=== PATIENT | male | born 1935 | race Caucasian/White ===

== ENCOUNTER 2016-07-22 06:18 | Day surgery (SDC) | payer OTHER, BC ==
[2016-07-20 19:22] VITALS: BMI 31.3
[~2016-07-22 06:18] MED LIST: ceFAZolin SODIUM 1 GM VIAL IVPB ONE
[2016-07-22] MEDS ORDERED: PROPOFOL 20 ML ONE (08:13)
[2016-07-22] MEDS ORDERED: cefTRIAXone 1 GM/50 ML BAG (PRE-DOCKED) IVPB ONE (08:15)
[2016-07-22] MEDS ORDERED: cefTRIAXone SODIUM 1 GM VIAL IVPB ONE (08:19)
[2016-07-22] MEDS ORDERED: LIDOCAINE HCL/PF 2% SDV 5ML VIAL ONE (08:19)
[2016-07-22] MEDS ORDERED: oxyCODONE HCL 5 MG TABLET PO PRN (08:56)
[2016-07-22] MEDS ORDERED: ELECTROLYTE-148 SOLN 1,000 ML IV SCH (09:00)
--- NOTE | 2016-07-22 09:01 | OP ---
Operative Note - Note: Operative Date: 07/22/16 Pre-Operative Diagnosis: prostate stone, bladder neck obstruction Operation: cysto/laser litho/partial TURP Findings: stone adherent to prostatic urethra, bladder neck obstruction Post-Operative Diagnosis: Same as Pre-op Surgeon: Gabino Paul Anesthesia: General Specimens Removed: prostate stone/prostate chips Estimated Blood Loss (mls): 5 Operative Report Dictated: Yes
[2016-07-22] MEDS ORDERED: ONDANSETRON 4 MG/2 ML VIAL IVPUSH PRN (09:02)
[2016-07-22] MEDS ORDERED: PROMETHAZINE HCL 25 MG/1 ML VIAL IVPUSH PRN (09:02)
[2016-07-22] MEDS ORDERED: ACETAMINOPHEN 1000 MG/100 ML VIAL (NON FORMULARY) IVPB ONE (09:08)
[2016-07-22] MEDS ORDERED: LACTATED RINGERS SOLUTION 1,000 ML IV SCH (09:15)
[2016-07-22 12:05] VITALS: BP 144/65; PULSE 71
--- NOTE | 2016-07-22 20:35 | OP ---
DATE OF OPERATION: 07/22/2016 PREOPERATIVE DIAGNOSIS: Stone adherent to prostatic urethra and bladder neck obstruction. POSTOPERATIVE DIAGNOSIS: Stone adherent to prostatic urethra and bladder neck obstruction. PROCEDURE: Cystoscopy, laser lithotripsy of stone and partial transurethral resection of prostate. SURGEON: Darrell Metlon M.D. 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 He was taken to the OR for planned laser lithotripsy of stone and partial TURP. PROCEDURE: The patient was taken to the OR and placed supine on the OR table. After cardiac monitoring was begun and general anesthesia was established, he was prepped and draped dorsal lithotomy position. The 22 sheath cystoscope was inserted without difficulty. , status post TUR defect. There was a stone approximately 1.5 cm in size adherent to the prostatic urethra at the 2 o'clock position. Using the 1000 micron fiber, the stone was pulverized to fine dust in 2- to 3-mm fragments. These were all removed with the [employer] evacuator. At this point, the cystoscope was then removed and the prostatic urethra, underlying where the stone was, was partially resected to open up the bladder neck a little bit more. The prostate chips were then removed and sent to pathology for analysis. The bladder appeared normal. No tumors or stones were noted in the bladder. Bilateral were seen in normal anatomic position. There was no resection beyond the verumontanum to minimize incontinence. The resectoscope was then removed and a 20-Fijian Lakhani was then placed to straight drainage. Clear urine was retrieved. The patient was awakened from anesthesia and transferred to the recovery room in stable condition. There were no complications. ESTIMATED BLOOD LOSS: Minimal. DARRELL MELTON M.D. BRITNI/[id number]
[2016-07-26 09:22] VITALS: TEMP 97.8
--- NOTE | 2016-07-27 12:32 | PATH ---
Surgical Pathology Report Patient Name: INGRIS LIMA Med. Rec. #: [id number] /Age/Gender: 1935 (Age: 81) / M Account: [id number] Location: [facility] Taken: 07/22/2016 Received: 07/26/2016 Reported: 07/27/2016 Physicians: Gabino Paul M.D. Specimen(s) Received A: PROSTATE TISSUE B: BLADDER/PROSTAT E STONE Clinical History Prostate stone, bladder neck obstruction Final Diagnosis A. PROSTATE, TUR: BENIGN FIBROMUSCULAR TISSUE WITH BENIGN UROTHELIAL MUCOSA. ACUTE AND CHRONIC INFLAMMATION WITH STROMAL SCLEROSIS IS PRESENT. B. BLADDER/PROSTATE STONE, EXTRACTION: CALCULI SUBMITTED FOR CHEMICAL ANALYSIS (gross only). Electronically Signed Justino Cano M.D. Gross Description A. Received in formalin labeled "partial prostate tissue," is a less than 1 g, 1.3 x 0.7 x 0.2 cm aggregate of multiple novak, irregular, firm to rubbery portions of tissue, consistent with prostate tissue. The specimen is submitted in toto in one cassette. B. Received fresh labeled "bladder/prostate stone," is a 1.0 x 0.7 x 0.3 cm aggregate of novak-brown, irregular to fragmented calculi which are sent for chemical analysis. 07/26/201607/26/2016
[2016-08-03 14:13] LABS: COLOR Brown (.)
== END 2016-07-22 12:00 | disposition home or self-care (01) ==
LOC: JASU-SURG 06:18
PROVIDERS: ATTEND Urology
PROC: 0TC78ZZ Extirpation of Matter from Left Ureter, Via Natural or Artificial Opening Endoscopic (ICD-10-PCS; principal; 2016-07-22 08:00)
PROC: 0VB08ZZ Excision of Prostate, Via Natural or Artificial Opening Endoscopic (ICD-10-PCS; 2016-07-22 08:00)
DX: N20.1 Calculus of ureter (principal); N40.1 Benign prostatic hyperplasia with lower urinary tract symptoms
CPT/HCPCS: 36415; 82360; 88300-TC; 88305-TC; 94760

== ENCOUNTER 2017-01-17 19:02 | Inpatient (IN) | payer OTHER, BC ==
[2017-01-17] MEDS ORDERED: ACETAMINOPHEN 325 MG TABLET (FP) PO ONE (21:16)
[2017-01-17] MEDS ORDERED: ACETAMINOPHEN 325 MG TABLET (FP) ONE (21:19)
--- NOTE | 2017-01-17 21:40 | PDOC ---
History of Present Illness - General Chief Complaint: Pain Stated Complaint: FALL/INJURY Time Seen by Provider: 01/17/17 20:53 History Source: Patient, Spouse - History of Present Illness Initial Comments: 01/17/17 21:19 81 year old male c/o trip and fall on carpet yesterday, reports unable to weight bear due to right knee pain. denies head injury. denies Syncope/ loc. Past History - Past Medical History Allergies/Adverse Reactions: Allergies Allergy/AdvReac Type Severity Reaction Status Date / Time No Known Allergies Allergy Verified 07/22/16 07:43 Home Medications: Ambulatory Orders Metformin HCl 850 mg PO TID 03/22/15 Aspirin [Ecotrin] 81 mg PO DAILY 06/05/15 Latanoprost 0.005% Eye Drops [Xalatan 0.005% Eye Drops -] 1 drop OU DAILY Prednisone 5 mg PO DAILY 06/05/15 Valsartan/Hydrochlorothiazide [Diovan Hct 320-25 mg Tablet] 1 combo PO DAILY 06/17 Glipizide [Glipizide ER] 10 mg PO BID 07/20/16 Anemia: No Asthma: No Cancer: Yes (PROSTATE CANCER) Cardiac Disorders: No CVA: No COPD: No CHF: No Dementia: No Diabetes: Yes (NIDDM) GI Disorders: Yes (DIVERTICULOSIS; ACID REFLUX; CECAL ADENOMA; ESOPHAGITIS) Disorders: Yes HTN: Yes Hypercholesterolemia: No Liver Disease: Yes Seizures: No Thyroid Disease: No - Surgical History Abdominal Surgery: No Appendectomy: No Cardiac Surgery: No Cholecystectomy: No Lung Surgery: No Neurologic Surgery: No Orthopedic Surgery: Yes (RIGHT HIP REPLACEMENT) - Suicide/Smoking/Psychosocial Hx Smoking History: Never smoked Have you smoked in the past 12 months: No Information on smoking cessation initiated: No Hx Alcohol Use: Yes (several times a week) Drug/Substance Use Hx: No Substance Use Type: None Hx Substance Use Treatment: No Review of Systems - Review of Systems Able to Perform ROS?: Yes Is the patient limited [place] proficient: No Constitutional: No: Symptoms Reported, See HPI, Chills, Diaphoresis, Fever, Loss of Appetite, Malaise, Night Sweats, Weakness, Weight Stable, Unintentional Wgt. Loss, Unexplained wgt Loss, Other Musculoskeletal: Yes: Other (left knee pain) Integumentary: No: Symptoms Reported, See HPI, Bruising, Change in Color, Change in Hair/Nails, Dryness, Erythema, Flushing, Lesions, Lumps, Pallor, Pruritus, Rash, Sweating, Other Neurological: No: Symptoms reported, See HPI, Headache, Numbness, Paresthesia, Pre-Existing Deficit, Seizure, Tingling, Tremors, Weakness, Unsteady Gait, Ataxia, Dizziness, Other *Physical Exam - Vital Signs Last Vital Signs Temp Pulse Resp BP Pulse Ox 99 F 82 18 126/58 97 01/17/17 19:19 01/17/17 19:19 01/17/17 19:19 01/17/17 19:19 01/17/17 19:19 - Physical Exam General Appearance: Yes: Appropriately Dressed Extremity: positive: Normal Capillary Refill, Other (left knee swelling. unable to weight bear. ) Integumentary: positive: Normal Color, Dry, Warm Neurologic: positive: Fully Oriented, Alert, Normal Mood/Affect, Other ( normocephalic) Progress Note - Progress Note Progress Note: A: left knee joint effusion P: Xray pain control CT knee patient need to admitted for ortho evaluation and PT evaluation patient unable to weight bear. patient signed out to Shruthi Lutz NP. *DC/Admit/Observation/Transfer Diagnosis at time of Disposition: Effusion of left knee joint, Unable to walk - Discharge Dispostion Admit: Yes - Referrals Referrals: Nitin Ruiz MD [Primary Care Provider] -
--- NOTE | 2017-01-17 22:07 | PDOC ---
*Physical Exam - Vital Signs Last Vital Signs Temp Pulse Resp BP Pulse Ox 99 F 82 18 126/58 97 01/17/17 19:19 01/17/17 19:19 01/17/17 19:19 01/17/17 19:19 01/17/17 19:19 - Physical Exam Comments: 01/17/17 22:06 Sign-out received from fast track provider Ravinder. Pt interviewed and examined. Ancillary studies reviewed. Patient will require inpatient admission for PT and ortho consult. 01/17/17 22:44 An acute nondisplaced patellar fracture involving sagittal plane at approximate junction of mid and lateral thirds. Moderate to large hemarthrosis visualized. Discussed case with patient's PCP Sara, who accepts patient for inpatient admission. ED Treatment Course - Medications Given in the ED: ED Medications Discontinued Medications Generic Name Dose Route Start Last Admin Trade Name Freq PRN Reason Stop Dose Admin Acetaminophen 650 mg 01/17/17 21:16 01/17/17 21:21 Tylenol - PO 01/17/17 21:17 650 mg ONCE ONE Administration *DC/Admit/Observation/Transfer Diagnosis at time of Disposition: Effusion of left knee joint, Unable to ambulate - Discharge Dispostion Admit: Yes - Referrals
[2017-01-18 00:58] LABS: MCHC 34.2 g/dl (32.0-35.9); MEAN CELL VOLUME 99.4 fl (80-96); MEAN PLT VOLUME 11.8 fl (7.5-11.1); PLATELET COUNT 83 K/MM3 (134-434)
[2017-01-18 01:07] LABS: INR 1.09 (0.82-1.09); PROTHROMBIN TIME (PATIENT) 12.3 SEC (9.98-11.88)
[2017-01-18 01:17] LABS: ALBUMIN 3.1 g/dl (3.4-5.0); ALK PHOS 67 U/L (45-117); ANION GAP 7 (8-16); BILIRUBIN,TOTAL 0.7 mg/dL (0.2-1.0); CALCIUM 8.4 mg/dL (8.5-10.1); CO2 33 mmol/L (21-32); CREATININE 0.8 mg/dL (0.7-1.3); GLUCOSE,RANDOM 188 mg/dL (74-106); SGOT/AST 21 U/L (15-37); SGPT/ALT 34 U/L (12-78); TOT PROT 6.5 g/dl (6.4-8.2)
[2017-01-18 02:33] VITALS: BMI 30.2
[2017-01-18] MEDS ORDERED: ONDANSETRON 4 MG/2 ML VIAL IVPB PRN (03:05)
[2017-01-18 03:18] LABS: PLATELET ESTIMATE MOD DECREASED (NORMAL)
[2017-01-18 03:19] LABS: REACTIVE LYMPHOCYTES 1 % (0-80); TOTAL CELLS COUNTED 100
[2017-01-18] MEDS: morphine CARPU-JECT 2 MG/1 ML DISP.SYRIN IVPUSH PRN ×3 (03:54→13:52)
--- NOTE | 2017-01-18 09:40 | HP ---
Admitting History and Physical - Primary Care Physician PCP: Tonya Ruiz S - Admission Chief Complaint: fall unable to walk History of Present Illness: 81 year old male c/o trip and fall on carpet yesterday, reports unable to weight bear due to left knee pain. denies head injury. denies Syncope/ loc. Knee CT c/w acute patella fracture, admitted for further w/u and tx. h/o ASHD CHF HTN CRF OA low PLT DM History Source: Patient, Medical Record Limitations to Obtaining History: No Limitations - Past Medical History Cardiovascular: Yes: CAD, CHF, HTN, Hyperlipdemia Pulmonary: Yes: COPD Renal/: Yes: Renal Inusuff Musculoskeletal: Yes: Osteoarthritis - Smoking History Smoking history: Never smoked Have you smoked in the past 12 months: No - Alcohol/Substance Use Hx Alcohol Use: Yes (several times a week) History of Substance Use: reports: None - Social History Usual Living Arrangement: Yes: With Spouse ADL: Independent History of Recent Travel: No Home Medications - Allergies Allergies/Adverse Reactions: Allergies Allergy/AdvReac Type Severity Reaction Status Date / Time No Known Allergies Allergy Verified 07/22/16 07:43 - Home Medications Home Medications: Ambulatory Orders Metformin HCl 850 mg PO TID 03/22/15 Aspirin [Ecotrin] 81 mg PO DAILY 06/05/15 Latanoprost 0.005% Eye Drops [Xalatan 0.005% Eye Drops -] 1 drop OU DAILY Prednisone 5 mg PO DAILY 06/05/15 Valsartan/Hydrochlorothiazide [Diovan Hct 320-25 mg Tablet] 1 combo PO DAILY 06/17 Glipizide [Glipizide ER] 10 mg PO BID 07/20/16 Family Disease History - Family Disease History Family History: Unremarkable Review of Systems - Review of Systems Constitutional: denies: Chills, Fever, Loss of Appetite, Unintentional Wgt. Loss , Weakness Eyes: denies: Blurred Vision, Double Vision HENT: denies: Ear Pain Neck: denies: Stiffness, Tenderness Cardiovascular: denies: Chest Pain, Shortness of Breath Respiratory: denies: Cough, SOB Gastrointestinal: denies: Abdominal Pain, Diarrhea, Nausea, Vomiting Genitourinary: denies: Dysuria, Flank Pain Neurological: denies: Change in LOC, Change in Speech, Confusion, Dizziness, Seizure, Syncope, Unsteady Gait, Weakness Hematology/Lymphatic: denies: Easily Bruised, Excessive Bleeding Psychiatric: denies: Altered Sleep Pattern, Anxiety, Depression, Suicidal Physical Examination Vital Signs: Vital Signs Temperature 98.7 F 01/18/17 06:14 Pulse Rate 78 01/18/17 06:14 Respiratory Rate 19 01/18/17 06:14 Blood Pressure 139/71 01/18/17 06:14 O2 Sat by Pulse Oximetry (%) 98 01/18/17 02:38 Constitutional: Yes: No Distress, Calm Eyes: Yes: Conjunctiva Clear HENT: Yes: Atraumatic Neck: Yes: Supple Cardiovascular: Yes: Regular Rate and Rhythm Respiratory: Yes: CTA Bilaterally Gastrointestinal: Yes: Soft. No: Distention, Tenderness Renal/: No: CVA Tenderness - Left, CVA Tenderness - Right Musculoskeletal: No: Joint Stiffness, Joint Swelling Extremities: Yes: Other (L knee swelling). No: Cold, Cool, Cyanosis Edema: No Integumentary: No: Rash, Venous Stasis Changes Neurological: Yes: WNL, Alert, Oriented ...Motor Strength: WNL Psychiatric: Yes: WNL, Alert, Oriented. No: Agitated, Suicidal Ideation Labs: CBC, BMP 01/18/17 00:45 01/18/17 00:45 Imaging - Results Chest X-ray: Report Reviewed Cat Scan: Report Reviewed Other: Report Reviewed Assessment/Plan 81 year old male c/o trip and fall now with L patellar fracture admit ortho eval PT rehab pain meds d/w pt and , d/w staff
[2017-01-18] MEDS ORDERED: [UNRECOGNIZED DRUG - OTHER] PO SCH (10:00)
[2017-01-18] MEDS ORDERED: HYDROCHLOROTHIAZIDE PO SCH (10:00)
[2017-01-18] MEDS ORDERED: VALSARTAN PO SCH (10:00)
--- NOTE | 2017-01-18 10:11 | CON.ORTH ---
Consult Reason for Consultation:: left patella fx - Alcohol/Substance Use Hx Alcohol Use: Yes (several times a week) - Smoking History Smoking history: Never smoked Have you smoked in the past 12 months: No Home Medications - Allergies Allergies/Adverse Reactions: Allergies Allergy/AdvReac Type Severity Reaction Status Date / Time No Known Allergies Allergy Verified 07/22/16 07:43 - Home Medications Home Medications: Ambulatory Orders Metformin HCl 850 mg PO TID 03/22/15 Aspirin [Ecotrin] 81 mg PO DAILY 06/05/15 Latanoprost 0.005% Eye Drops [Xalatan 0.005% Eye Drops -] 1 drop OU DAILY Prednisone 5 mg PO DAILY 06/05/15 Valsartan/Hydrochlorothiazide [Diovan Hct 320-25 mg Tablet] 1 combo PO DAILY 06/17 Glipizide [Glipizide ER] 10 mg PO BID 07/20/16 Physical Exam for Ortho Vital Signs: Vital Signs Temperature 98.7 F 01/18/17 06:14 Pulse Rate 78 01/18/17 06:14 Respiratory Rate 19 01/18/17 06:14 Blood Pressure 139/71 01/18/17 06:14 O2 Sat by Pulse Oximetry (%) 98 01/18/17 02:38 Labs: CBC, BMP 01/18/17 00:45 01/18/17 00:45 INR, PTT INR 1.09 (0.82-1.09) 01/18/17 00:45 - Lower Extremity Knee: Yes: Left, Limited ROM, Pain, Swelling, Tenderness, Other (nvi) Imaging - Results X-ray: Report Reviewed, Image Reviewed Cat Scan: Report Reviewed, Image Reviewed Assessment/Plan 81 year old male s/p trip and fall on carpet, Pt was found to have left patella fx. denies head injury. denies Syncope/ loc. a/p- left nondisplaced patella fx No surgery needed knee immobilizer wbat with immobilizer in place pain control dvt ppx august d/c from ortho pov d/w DR. Navarrete
[2017-01-18] MEDS: predniSONE 5 MG TABLET (UD) PO SCH (10:32)
[2017-01-18] MEDS: VALSARTAN 160 MG TABLET (UD) PO SCH (10:32)
[2017-01-18] MEDS: HYDROCHLOROTHIAZIDE 25 MG TABLET (FP) PO SCH (10:33)
[2017-01-18] MEDS: ASPIRIN COATED 81 MG TABLET.EC PO SCH (10:33)
[2017-01-18] MEDS: glipiZIDE-XL 10 MG TAB.ER.24 (FP) PO SCH ×2 (11:17→17:12)
[2017-01-18] MEDS ORDERED: PT OWN MED DRAWER 7, Y5N ONE ×2 (17:15→21:20)
[2017-01-18] MEDS: LATANOPROST 0.005% OPHTH SOLN 2.5ML BOTTLE OU SCH (21:22)
--- NOTE | 2017-01-18 22:18 | EKG ---
Test Reason : Blood Pressure : / mmHG Vent. Rate : 070 BPM Atrial Rate : 070 BPM P-R Int : 196 ms QRS Dur : 090 ms QT Int : 396 ms P-R-T Axes : 024 -12 010 degrees QTc Int : 427 ms POOR DATA QUALITY, INTERPRETATION MAY BE ADVERSELY AFFECTED NORMAL SINUS RHYTHM MINIMAL VOLTAGE CRITERIA FOR LVH, MAY BE NORMAL VARIANT BORDERLINE ECG WHEN COMPARED WITH ECG OF 23-JUL-2010 13:47, NO SIGNIFICANT CHANGE WAS FOUND REPEAT EKG IF CLINICALLY INDICATED Confirmed by DANAE ROBINS MD ([id number]) on 01/18/2017 10:18:48 PM Referred By: Confirmed By:DANAE ROBINS MD
[2017-01-19] MEDS: ACETAMINOPHEN 325 MG TABLET (FP) PO PRN ×4 (00:35→21:41)
[2017-01-19] MEDS: oxyCODONE HCL 5 MG TABLET PO PRN ×5 (00:36→21:40)
[2017-01-19] MEDS: glipiZIDE-XL 10 MG TAB.ER.24 (FP) PO SCH ×2 (06:10→17:13)
[2017-01-19] MEDS: HYDROCHLOROTHIAZIDE 25 MG TABLET (FP) PO SCH (09:24)
[2017-01-19] MEDS: VALSARTAN 160 MG TABLET (UD) PO SCH (09:25)
[2017-01-19] MEDS: predniSONE 5 MG TABLET (UD) PO SCH (09:25)
[2017-01-19] MEDS: ASPIRIN COATED 81 MG TABLET.EC PO SCH (09:25)
--- NOTE | 2017-01-19 10:07 | PN ---
Progress Note (short form) - Note Progress Note: Pt seen and examined. He is comfortable overall, but c/o pain in the left knee/ patella. Has difficulty walking bc of pain in both legs, feet, knees. PE LLE in knee immobilizer LLE grossly NVI + resolving ecchymosis over the left patella Imp Doing fine, with a nondisplaced left lower pole patella fracture. Rec P.T., can WBAT with a walker, in the knee immobilizer, with the knee in full extension. Can DC from an orthopedic pov, f/u in ~1 week as an outpt
--- NOTE | 2017-01-19 12:08 | PN ---
Progress Note, Physician Chief Complaint: in bed nad has some pain left knee; no BM x2 days will order stool softener seen by ortho and PT - Current Medication List Current Medications: Active Medications Acetaminophen (Tylenol -) 325 mg PO Q4H PRN PRN Reason: PAIN Stop: 01/22/17 00:26 Last Admin: 01/19/17 09:25 Dose: 325 mg Aspirin (Ecotrin -) 81 mg PO DAILY [facility] Last Admin: 01/19/17 09:25 Dose: 81 mg Glipizide (Glucotrol Xl -) 10 mg PO BIDAC [facility] Last Admin: 01/19/17 06:10 Dose: 10 mg Heparin Sodium (Porcine) (Heparin -) 5,000 unit SQ BID REBA Hydrochlorothiazide (Hctz -) 25 mg PO DAILY [facility] Last Admin: 01/19/17 09:24 Dose: 25 mg Latanoprost (Xalatan 0.005% Eye Drops -) 1 drop OU HS [facility] Last Admin: 01/18/17 21:22 Dose: 1 drop Metformin HCl (Glucophage -) 850 mg PO TID [facility] Last Admin: 01/19/17 06:10 Dose: 850 mg Morphine Sulfate (Morphine Injection -) 2 mg IVPUSH Q3H PRN PRN Reason: PAIN Last Admin: 01/18/17 13:52 Dose: 2 mg Ondansetron HCl (Zofran Injection) 4 mg IVPB Q8H PRN PRN Reason: NAUSEA AND/OR VOMITING Oxycodone HCl (Roxicodone -) 5 mg PO Q4H PRN PRN Reason: PAIN Last Admin: 01/19/17 09:25 Dose: 5 mg Polyethylene Glycol (Miralax (For Daily Use) -) 17 gm PO DAILY [facility] Prednisone (Deltasone -) 5 mg PO DAILY [facility] Last Admin: 01/19/17 09:25 Dose: 5 mg Valsartan (Diovan -) 320 mg PO DAILY [facility] Last Admin: 01/19/17 09:25 Dose: 320 mg - Objective Vital Signs: Vital Signs Temperature 99.1 F 01/19/17 06:30 Pulse Rate 69 01/19/17 06:30 Respiratory Rate 20 01/19/17 06:30 Blood Pressure 141/73 01/19/17 06:30 O2 Sat by Pulse Oximetry (%) 97 01/18/17 21:00 Constitutional: Yes: No Distress, Calm Eyes: Yes: Conjunctiva Clear HENT: Yes: Atraumatic Neck: Yes: Supple Cardiovascular: Yes: Regular Rate and Rhythm Respiratory: Yes: CTA Bilaterally Gastrointestinal: Yes: Soft. No: Distention, Tenderness Genitourinary: No: CVA Tenderness - Left, CVA Tenderness - Right Extremities: Yes: Other (L knee edema) Edema: No Peripheral Pulses WNL: Yes Integumentary: No: Rash, Venous Stasis Changes Neurological: Yes: WNL, Alert, Oriented ...Motor Strength: WNL Psychiatric: Yes: WNL, Alert, Oriented. No: Agitated, Suicidal Ideation Labs: CBC, BMP 01/18/17 00:45 01/18/17 00:45 INR, PTT INR 1.09 (0.82-1.09) 01/18/17 00:45 - ....Imaging Other: Report Reviewed Assessment/Plan 81 year old male c/o trip and fall now with L patellar fracture no surgery per ortho to go to SNF for PT rehab pain meds d/w pt and , d/w staff d/w daughter Yvonne [phone]
[2017-01-19] MEDS ORDERED: PT OWN MED DRAWER 7, Y5N ONE ×3 (14:16→21:39)
[2017-01-19] MEDS: POLYETHYLENE GLYCOL 3350 119 GM BTL PO SCH (14:38)
[2017-01-19] MEDS: HEPARIN NA (PORCINE) 5,000 UNITS/ML 1ML VIAL SQ SCH ×2 (14:38→22:07)
[2017-01-19] MEDS: LATANOPROST 0.005% OPHTH SOLN 2.5ML BOTTLE OU SCH (23:32)
[2017-01-20] MEDS: oxyCODONE HCL 5 MG TABLET PO PRN ×2 (03:56→10:11)
[2017-01-20] MEDS: ACETAMINOPHEN 325 MG TABLET (FP) PO PRN ×2 (03:57→10:10)
[2017-01-20] MEDS ORDERED: PT OWN MED DRAWER 7, Y5N ONE ×2 (06:01→09:57)
[2017-01-20] MEDS: glipiZIDE-XL 10 MG TAB.ER.24 (FP) PO SCH (06:08)
[2017-01-20 06:40] VITALS: TEMP 97.6
--- NOTE | 2017-01-20 07:25 | DS ---
Physical Examination Vital Signs: Vital Signs Temperature 97.6 F 01/20/17 06:38 Pulse Rate 70 01/20/17 06:38 Respiratory Rate 18 01/20/17 06:38 Blood Pressure 139/70 01/20/17 06:38 O2 Sat by Pulse Oximetry (%) 97 01/19/17 21:00 Findings/Remarks: in bed NAD VSS afebrile, no c/o; no BM yet but given stools softeners, d/w pt to d/w Rehab if still no BM today to add another stools softener; no leg pain; cleared for DC to SNF rehab; d/w pt and and daughter Yvonne d/w staff and CM; f/u as advised Constitutional: Yes: No Distress, Calm Eyes: Yes: Conjunctiva Clear HENT: Yes: Atraumatic Neck: Yes: Supple Cardiovascular: Yes: Regular Rate and Rhythm Respiratory: Yes: CTA Bilaterally Gastrointestinal: Yes: Soft. No: Distention, Tenderness Renal/: No: CVA Tenderness - Left, CVA Tenderness - Right Musculoskeletal: No: Joint Stiffness, Joint Swelling Extremities: Yes: Other (L knee no swelling). No: Cold, Cool, Cyanosis Edema: No Integumentary: No: Rash, Venous Stasis Changes Neurological: Yes: WNL, Alert, Oriented ...Motor Strength: WNL Psychiatric: Yes: WNL, Alert, Oriented. No: Agitated, Suicidal Ideation Labs: CBC, BMP 01/18/17 00:45 01/18/17 00:45 Discharge Summary Reason For Visit: EFFUSION OF LEFT KNEE Current Active Problems Effusion of left knee joint (Acute) Unable to ambulate (Acute) Procedures: Principal: s/p mechanical fall; L knee pain Other Procedures: knee CT c/w patellar fracture; seen by ortho no intervention; Hospital Course: to be transferred to SNF Rehab for PT; f/u PCP and ortho in 1-2 weeks after DC from [place]; stools softeners; DVT pfx; pain meds PRN falls PFX d/w pt and staff, d/w family Condition: Improved - Instructions Diet, Activity, Other Instructions: f/u PCP & ortho 1-2 weeks after DC from [place]/SNF PT rehab in SNF falls PFX, DVT pfx stools softeners RTER if worse or recurrent d/w pt and pt's family Referrals: Nitin Ruiz MD [Primary Care Provider] - Tyree Navarrete MD [Staff Physician] - Disposition: [facility] - Home Medications Comprehensive Discharge Medication List: Ambulatory Orders Metformin HCl 850 mg PO TID 03/22/15 Aspirin [Ecotrin] 81 mg PO DAILY 06/05/15 Latanoprost 0.005% Eye Drops [Xalatan 0.005% Eye Drops -] 1 drop OU DAILY Prednisone 5 mg PO DAILY 06/05/15 Valsartan/Hydrochlorothiazide [Diovan Hct 320-25 mg Tablet] 1 combo PO DAILY 06/17 Glipizide [Glipizide ER] 10 mg PO BID 07/20/16 Acetaminophen [Tylenol .Regular Strength -] 325 mg PO Q4H PRN #0 tablet Heparin - 5,000 unit SQ BID vial 01/19/17 Hydrochlorothiazide [Hctz -] 25 mg PO DAILY tablet 01/19/17 Oxycodone HCl [Roxicodone -] 5 mg PO Q6H PRN #0 tablet MDD 4 01/19/17 Polyethylene Glycol 3350 [Miralax 119 gm Btl -] 17 gm PO DAILY bottle 01/19/17
[2017-01-20 08:25] LABS: BASOPHIL 0.5 % (0-2.0); EOSINOPHIL 6.1 % (0-4.5); MCH 33.3 pg (25.7-33.7); MCHC 33.7 g/dl (32.0-35.9); MEAN CELL VOLUME 98.6 fl (80-96); MEAN PLT VOLUME 11.1 fl (7.5-11.1); NEUTROPHILS 62.5 % (42.8-82.8); PLATELET COUNT 108 K/MM3 (134-434); RDW 12.8 % (11.9-15.9); WHITE BLOOD COUNT 8.2 K/mm3 (4.0-10.0)
[2017-01-20 09:03] LABS: ALBUMIN 2.6 g/dl (3.4-5.0); ANION GAP 8 (8-16); BILIRUBIN,TOTAL 0.5 mg/dL (0.2-1.0); CALCIUM 8.5 mg/dL (8.5-10.1); CO2 31 mmol/L (21-32); CREATININE 0.6 mg/dL (0.7-1.3); GLUCOSE,RANDOM 77 mg/dL (74-106); SGOT/AST 21 U/L (15-37); SGPT/ALT 28 U/L (12-78); TOT PROT 6.1 g/dl (6.4-8.2)
[2017-01-20 09:04] LABS: ALK PHOS 85 U/L (45-117)
--- NOTE | 2017-01-20 09:04 | PN ---
Progress Note (short form) - Note Progress Note: Ortho Pt seen and examined s/p left patella fx immobilizer in place, cliff pain, decr swelling, nvi a/p PT wbat with knee immobilizer in place pain control dvt ppx d/c to snf d/w DR. Navarrete
[2017-01-20] MEDS: POLYETHYLENE GLYCOL 3350 119 GM BTL PO SCH (10:09)
[2017-01-20] MEDS: predniSONE 5 MG TABLET (UD) PO SCH (10:10)
[2017-01-20] MEDS: VALSARTAN 160 MG TABLET (UD) PO SCH (10:10)
[2017-01-20] MEDS: ASPIRIN COATED 81 MG TABLET.EC PO SCH (10:11)
[2017-01-20] MEDS: HEPARIN NA (PORCINE) 5,000 UNITS/ML 1ML VIAL SQ SCH (10:11)
[2017-01-20] MEDS: HYDROCHLOROTHIAZIDE 25 MG TABLET (FP) PO SCH (10:12)
[2017-01-20 11:48] VITALS: BP 145/65; PULSE 71
== END 2017-01-20 12:00 | DRG 563 ==
LOC: JER 19:02 → JERBED 22:45 → J6S 01-18 01:40
PROVIDERS: ADMIT Specialist; ATTEND Specialist
PROC: 2W3MXYZ Immobilization of Left Lower Extremity using Other Device (ICD-10-PCS; principal; 2017-01-18)
DX: S82.002A Unspecified fracture of left patella, initial encounter for closed fracture (principal); M25.462 Effusion, left knee; I11.0 Hypertensive heart disease with heart failure; W18.09XA Striking against other object with subsequent fall, initial encounter; Y92.038 Other place in apartment as the place of occurrence of the external cause; Y93.89 Activity, other specified; Z96.641 Presence of right artificial hip joint; Y99.8 Other external cause status; Z85.46 Personal history of malignant neoplasm of prostate; E11.9 Type 2 diabetes mellitus without complications; K21.9 Gastro-esophageal reflux disease without esophagitis; K57.30 Diverticulosis of large intestine without perforation or abscess without bleeding
CPT/HCPCS: 36415; 73562-TC-LT; 73700-TC-RT; 80053; 85025; 85610; 85730; 86850; 86900; 86901; 93005; 93010; 97116-GP; 97162-GP; 99283-25; J1644

== ENCOUNTER 2020-07-08 10:55 | Emergency (ER) | payer OTHER, MEDICARE ==
[2020-07-08 11:13] VITALS: BMI 31.3
[2020-07-08] MEDS ORDERED: OXYMETAZOLINE 0.05% NASAL SOLUTION 15 ML BOTTLE NS ONE (11:28)
[2020-07-08 13:20] VITALS: BP 150/67; PULSE 80; TEMP 98.5
== END 2020-07-08 14:14 | disposition home or self-care (01) ==
LOC: JER 10:55
DX: R04.0 Epistaxis (principal)
CPT/HCPCS: 99283-25